=== PATIENT | female | born 1955 | race American Indian/Alaskan Native ===

== ENCOUNTER 2021-02-26 11:47 | Emergency (ER) | payer MEDICARE, MEDICAID ==
--- NOTE | 2021-02-26 12:09 | Emergency Department Report ---
ED Female HPI - General Chief complaint: Urogenital-Female Stated complaint: VAGINAL INFECTION Time Seen by Provider: 02/26/21 12:00 Source: patient Mode of arrival: Ambulatory Limitations: No Limitations - History of Present Illness Initial comments: 66-year-old female with a past medical history of hyperlipidemia, hypertension, borderline diabetes, pancreatitis and medication noncompliance presents to the ER today with complaints of vaginal discomfort and discharge. Patient states that for the past week she has been having swelling to her labia, and she feels like she has lumps on the labia and has been painful. She also reports lymph node swelling in her groin area and a white discharge and itching. Patient states that she has burning with urination, but is mainly when the urine touches her labia but she is also been having urinary frequency and is concerned she may be having a UTI as well. She states that she has a history of UTIs. She is status post partial hysterectomy. She states that she was , and her a year ago and she has not been sexually active since. She denies any pelvic pain, back pain, abdominal pain, nausea, vomiting, fever, chills or any additional symptoms at this time. MD Complaint: vaginal discharge, other (Vaginal swelling and discomfort) -: week(s) (1) Location: labia Are you Now?: No - Related Data Sexually active: No Previous Rx's Medication Instructions Recorded Last Taken Type Fluconazole [Diflucan TAB] 200 mg PO QDAY #2 tablet 02/26/21 Unknown Rx Allergies Allergy/AdvReac Type Severity Reaction Status Date / Time gentamicin Allergy Anaphylaxis Verified 08/08/19 21:24 ED Review of Systems ROS: Stated complaint: VAGINAL INFECTION Other details as noted in HPI ED Past Medical Hx - Past Medical History Hx Hypertension: Yes Hx Diabetes: Yes Additional medical history: stomach ulcers - Social History Smoking Status: Never Smoker Substance Use Type: Marijuana - Medications Home Medications: Home Medications Medication Instructions Recorded Confirmed Last Taken Type Fluconazole [Diflucan TAB] 200 mg PO QDAY #2 tablet 02/26/21 Unknown Rx ED Physical Exam - General Limitations: No Limitations General appearance: alert, in no apparent distress, anxious - Head Head exam: Present: atraumatic, normocephalic, normal inspection - Neck Neck exam: Present: normal inspection, full ROM. Absent: meningismus - Respiratory Respiratory exam: Present: normal lung sounds bilaterally. Absent: respiratory distress, wheezes, rales, rhonchi, chest wall tenderness - Cardiovascular Cardiovascular Exam: Present: regular rate, normal rhythm, normal heart sounds - GI/Abdominal GI/Abdominal exam: Present: soft. Absent: distended, tenderness, guarding, rebound - External exam: Present: lesions (single small excoriated area noted inner aspect of the right labia minora. Area is tender to palpate. No apparent signs of secondary bacterial infection.), other (Chapersone present ). Absent: swelling, lacerations, ecchymosis Speculum exam: Present: vaginal discharge (Very small amount of white discharge noted.). Absent: vaginal bleeding, foreign body, tissue, laceration Bi-manual exam: Present: other (Deferred as patient is status post hysterectomy.) - Neurological Exam Neurological exam: Present: alert, oriented X3, CN II-XII intact, normal gait - Psychiatric Psychiatric exam: Present: normal affect, normal mood - Skin Skin exam: Present: intact ED Course Vital Signs 02/26/21 02/26/21 11:52 13:48 Temperature 99.7 F H 98.3 F Pulse Rate 86 72 Respiratory 20 16 Rate Blood Pressure 128/81 Blood Pressure 97/64 [Right] O2 Sat by Pulse 96 98 Oximetry ED Medical Decision Making - Medical Decision Making Vaginal exam shows a single excoriated area to her right labia minora. I do not suspect this area to be related to genital herpes or syphilis at this time. Vaginal exam otherwise unremarkable. Wet prep positive for yeast but negative for BV or trichomoniasis. Urinalysis negative for UTI. Discussed suspected diagnosis and treatment plan with patient. She will be given referral into [facility]. Patient nontoxic, not ill-appearing and not in any significant distress. Patient was stable at time of discharge. Critical care attestation.: If time is entered above; I have spent that time in minutes in the direct care of this critically ill patient, excluding procedure time. ED Disposition Clinical Impression: Excoriation, Yeast vaginitis Disposition: HOME / SELF CARE / HOMELESS Is pt being admited?: No Does the pt Need Aspirin: No Condition: Stable Instructions: Vaginal Yeast Infection, Adult, Abrasion, [id number] Additional Instructions: Recommend I take the Diflucan as prescribed. Keep the area clean with soap and water, recommend using a gentle vaginal wash like vaginocele or honey pot se nsitive and after cleaning, dry well and you can apply a thin layer of Neosporin after each cleaning. Recommend try to avoid itching the area. You can use external Monistat if needed. Follow-up with your [facility], if you do not have 1 1 will be provided to you on your discharge instructions. Return to the ER if your symptoms worsens in any way. Prescriptions: Fluconazole [Diflucan TAB] 200 mg PO QDAY #2 tablet Referrals: [facility] [Provider Group] - 3-5 Days [facility] [Provider Group] - 3-5 Days Time of Disposition: 13:29
[2021-02-26 12:58] LABS: Bilirubin,Urine NEG (Negative); Blood,Urine NEG (Negative); Color,Urine Yellow (Yellow); Protein,Urine <15 mg/dL mg/dL (Negative); Urobilinogen,Urine < 2.0 mg/dL (<2.0)
[2021-02-26 13:52] VITALS: BP 97/64
== END 2021-02-26 13:55 | disposition home or self-care (01) ==
LOC: ED 11:47
DX: B37.3 Candidiasis of vulva and vagina (principal); N90.89 Other specified noninflammatory disorders of vulva and perineum
CPT/HCPCS: 81001; 87210; 99284